=== PATIENT | female | born 1970 | race Caucasian/White ===

== ENCOUNTER → 2018-03-14 18:13 | Outpatient (CLI) | payer BC, OTHER, SELFPAY ==
[2018-03-19 14:08] LABS: HPV Reflexed? NOT INDICATED
== END ==
PROVIDERS: Family Provider Family Medicine; PCP Family Medicine; Visit Provider Obstetrics & Gynecology
DX: Z12.4 Encounter for screening for malignant neoplasm of cervix (principal)
CPT/HCPCS: 88175; G0145

== ENCOUNTER → 2018-05-17 07:35 | Outpatient (CLI) | payer BC, OTHER, SELFPAY ==
--- NOTE | 2018-05-17 07:38 | BI_ITS ---
MAMMOGRAPHY - BILATERAL SCREENING REASON FOR EXAM: Female, 48 years old. Routine annual screening examination. PERTINENT HISTORY: Non-contributory. TECHNIQUE: Digital bilateral breast shanita (3D mammographic acquisition) in the CC and MLO projections. 2-D mediolateral oblique (MLO) and craniocaudad (CC) views of both breasts were obtained. CAD: Full Field Digital Mammography with Computer Added Detection was performed. COMPARISON: Comparison is made with prior study dated March 07, 2017 interpreted 2015. FINDINGS: Breast Composition: The breasts are extremely dense, which lowers the sensitivity of mammography. There are no dominant masses or suspicious calcifications. A tissue clip marker is seen in the upper medial aspect of the right breast with the history of prior right needle biopsy. No other significant abnormalities are identified. There has been no significant change since the prior study. BI/SCREENING MAMM (CAD), BILAT IMPRESSION: Stable bilateral screening mammogram. Yearly follow-up mammogram recommended. (A) ASSESSMENT CATEGORY: BIRADS Category 2: Benign. A letter regarding these results will be sent to the patient by the facility within 30 days. Approximately 10% of breast cancers are not detected by mammography. A normal mammogram should not delay biopsy of a clinically suspicious abnormality. [id number] Electronically Signed: Jules Owens MD at 10:13 EDT Tel [phone], Service support ,
== END ==
PROVIDERS: Family Provider Family Medicine; PCP Family Medicine; Visit Provider Obstetrics & Gynecology
DX: Z12.31 Encounter for screening mammogram for malignant neoplasm of breast (principal)
CPT/HCPCS: 77063; 77067

== ENCOUNTER → 2018-06-06 15:15 | Outpatient (CLI) | payer BC, OTHER, SELFPAY ==
[2018-06-06 17:40] LABS: Chlamydia Trachomatis by PCR Negative (Negative); Neisserai gonorrhoeae by PCR Negative (Negative); Probe Check PASS; Sample Adequacy Control PASS; Specimen Processing Control PASS
== END ==
PROVIDERS: Visit Provider Obstetrics & Gynecology
DX: Z11.3 Encounter for screening for infections with a predominantly sexual mode of transmission (principal)
CPT/HCPCS: 87491; 87591

== ENCOUNTER → 2019-05-30 | Outpatient (CLI) | payer OTHER, SELFPAY ==
--- NOTE | 2019-05-30 07:43 | BI_ITS ---
MAMMOGRAPHY - BILATERAL SCREENING REASON FOR EXAM: Female, 49 years old. Routine annual screening examination. PERTINENT HISTORY: Non-contributory. TECHNIQUE: Digital bilateral breast shi (3D mammographic acquisition) in the CC and MLO projections. 2-D mediolateral oblique (MLO) and craniocaudad (CC) views of both breasts were obtained. CAD: Full Field Digital Mammography with Computer Added Detection was performed. COMPARISON: Comparison is made with prior study dated May 17, 2018 and March 07, 2017. FINDINGS: Breast Composition: The breasts are extremely dense, which lowers the sensitivity of mammography. There are no dominant masses or suspicious calcifications. Interstitial clip markers once again seen within a small partially calcified nodule in the upper medial aspect of the right breast. No other significant abnormalities are identified. There has been no significant change since the prior study. BI/SCREEN MAMM (CAD) W/SHI BILAT IMPRESSION: Stable bilateral screening mammogram. Yearly follow-up mammogram recommended. (A) ASSESSMENT CATEGORY: BIRADS Category 2: Benign. A letter regarding these results will be sent to the patient by the facility within 30 days. Approximately 10% of breast cancers are not detected by mammography. A normal mammogram should not delay biopsy of a clinically suspicious abnormality. [id number] Electronically Signed: Jules Owens, at 10:16 EDT , Service support ,
== END | disposition home or self-care (01) ==
LOC: OPBI 07:41
PROVIDERS: Family Provider Family Medicine; PCP Family Medicine; Referring Provider Obstetrics & Gynecology; Visit Provider Obstetrics & Gynecology
DX: Z12.31 Encounter for screening mammogram for malignant neoplasm of breast (principal)
CPT/HCPCS: 77063; 77067

== ENCOUNTER → 2020-08-27 | Outpatient (CLI) | payer BC, OTHER, SELFPAY ==
--- NOTE | 2020-08-27 17:04 | BI_ITS ---
MAMMOGRAPHY - BILATERAL SCREENING REASON FOR EXAM: Female, 50 years old. Routine annual screening examination. PERTINENT HISTORY: Non-contributory. Prior right breast biopsy. TECHNIQUE: Digital bilateral breast shi (3D mammographic acquisition) in the CC and MLO projections. 2-D mediolateral oblique (MLO) and craniocaudad (CC) views of both breasts were obtained. CAD: Full Field Digital Mammography with Computer Added Detection was performed. COMPARISON: Comparison is made with prior study dated 05/30/2019 and 05/17/2018. FINDINGS: Breast Composition: The breasts are extremely dense, which lowers the sensitivity of mammography. There are no dominant masses or suspicious calcifications. A tissue clip marker is once again seen in the partially calcified small nodule in the deep upper medial aspect of the right breast. No other significant abnormalities are identified. There has been no significant change since the prior study. BI/SCREEN MAMM (CAD) W/SHI BILAT IMPRESSION: Stable bilateral screening mammogram. Yearly follow-up mammogram recommended. (A) ASSESSMENT CATEGORY: BIRADS Category 2: Benign. A letter regarding these results will be sent to the patient by the facility within 30 days. Approximately 10% of breast cancers are not detected by mammography. A normal mammogram should not delay biopsy of a clinically suspicious abnormality. [id number] Electronically Signed: Jules Owens, at 13:55 EDT , Service support ,
== END | disposition home or self-care (01) ==
LOC: OPBI 08-28 08:24
PROVIDERS: PCP Family Medicine; Referring Provider Obstetrics & Gynecology; Visit Provider Obstetrics & Gynecology
DX: Z12.31 Encounter for screening mammogram for malignant neoplasm of breast (principal)
CPT/HCPCS: 77063; 77067

== ENCOUNTER → 2020-09-17 | Outpatient (CLI) | payer BC, OTHER, SELFPAY ==
--- NOTE | 2020-09-16 16:31 | TISS_PTH ---
PATIENT: RJ VIEYRA LOC: [facility] U#:[id number] AGE/SX: 50/F ROOM: RE09/17/[address]: Dr. Herlinda Kebede MD : 1970 BED: DIS: 09/17/2020 SPEC #: [id number] RECD: 09/17/20 12:03 STATUS: NOMAN CHIP #: [id number] TERENCE: 09/16/20 16:[address]: Herlinda Kebede DEPT: SURGICAL PATHOLOGY RECD BY: Orin Hernández ENTERED: 09/17/20 13:47 SP TYPE: Tissue Bx CARTER DR: Dr. Medardo Rodriguez MD Tissues: Thyroid gland, NOS Procedures: Surgery Specimen Level IV HEADER OPERATION: Left thyroid needle core biopsy PRE-OP DIAGNOSIS: Thyroid mass TISSUE SUBMITTED: Thyroid needle core biopsy MICROSCOPIC DIAGNOSIS Thyroid mass, needle core biopsy: Consistent with benign colloid nodule. See comment. BRAVO:kevan 09/21/20 COMMENT The specimen also shows fragments of fibrous tissue with chronic inflammation, dystrophic calcification and skeletal muscle tissue. Correlation with clinical, radiologic findings and appropriate follow up are necessary. Please make reference to previous specimen ([id number]) fine needle aspiration, right thyroid nodule with diagnosis of macrophages, watery colloid and rare benign follicular cells and fine needle aspiration, left thyroid nodule with diagnosis of macrophages, watery colloid and rare benign follicular cells. MICROSCOPIC DESCRIPTION Slides are reviewed. GROSS DESCRIPTION Received is one container labeled with the patient's name and not further designated. The specimen consists of multiple irregular fragments of stewart soft tissue that in aggregate measure 1.5 x 0.2 x 0.1 cm. The specimen is totally submitted in one cassette. / BRAVO:kevan 09/18/20 TC:5 CPT: 06073
== END | disposition home or self-care (01) ==
LOC: LABSPEC 13:22
PROVIDERS: PCP Family Medicine; Referring Provider Surgery; Visit Provider Surgery
DX: E07.9 Disorder of thyroid, unspecified (principal)
CPT/HCPCS: 88305

== ENCOUNTER 2021-01-05 13:54 | Observation (INO) | payer BC, OTHER, SELFPAY ==
[2021-01-05] VITALS (11 sets, daily range): BP systolic 94–116; BP diastolic 45–73; PULSE 67–92; RESP 12–16; TEMP 36.2–37; O2SAT 95–100; BMI 21.1
--- NOTE | 2021-01-05 | IMM_PTH ---
PATIENT: RJ VIEYRA LOC: [facility] U#:[id number] AGE/SX: 50/F ROOM: [facility] [place] RE01/05/[address]: Dr. Herlinda Kebede MD : 1970 BED: 1 DIS: 01/06/2021 SPEC #: [id number] RECD: 01/07/21 11:32 STATUS: NOMAN REQ #: [id number] TERENCE: 01/05/21 00:[address]: Herlinda Kebede DEPT: IMMUNOHISTOCHEMISTRY RECD BY: Danette Leija ENTERED: 01/07/21 11:33 SP TYPE: IMMUNO OTHR DR: Dr. Medardo Rodriguez MD Tissues: Thyroid gland, NOS Procedures: HBME (initial) CD56 (add) CK19 (add) GAL-3 (add) PHYSICIAN & INSTITUTION [place] [id number] SPECIMEN INFORMATION: Tissue Source: Left thyroid nodule and isthmus Clinical Info: Left thyroid nodule Specimen Number: [id number] #5 CPT code: 26524, 87049 x3 METHODOLOGY: Deparaffinized sections of prefer/formalin-fixed tissue or PAP/DQ stained slides are incubated with monoclonal/polyclonal antibodies/oligonucleotide probes. Localization is made via biotin free immunoperoxidase method. Appropriate controls are performed and reacted as expected. Results on target cell population are indicated in the following table: RESULTS: ANTIBODY / CLONE RESULT Block 5 HBME1 (HBME-1) positive CK19 (A53-B/A2.26) positive GAL3 (9C4) negative CD56 (123C3.D5) positive, focal These tests were developed and their performance characteristics determined by [facility]. They may not have been cleared or approved by the U.S. Food and Drug Administration. The FDA has determined that such clearance or approval is not necessary. The above immunohistochemical/dualISH markers are ordered and reviewed by the Pathologist. INTERPRETATION: Left thyroid nodule and isthmus, lobectomy and isthmusectomy: Consistent with follicular neoplasm. See comment. BRAVO:kevan 01/13/2021 Comment: The specimen is sent to [facility] for expert opinion, reviewed by Dr. Kebede and the above diagnosis is rendered. The complete report is viewable in the patient's EMR.
--- NOTE | 2021-01-05 09:05 | HP.PCM_ITS ---
History and Physical Date of Admission: 01/05/21 Yashira Lopez 1970 ? ? REFERRING PHYSICIAN: Min Ramirez MD ? CHIEF COMPLAINT: No chief complaint on file. ? HPI: The patient is a pleasant 50 year old female with known multinodular goiter. She is noted to have a large left thyroid nodule - 6.8 X 5.4 cm (previously 6.6 x 4.9 cm in 2016) She intermittently feels that something is there and points to the left side of her neck. She does feel that it takes a little bite more to swallow food, she feels that more work is involved. She notes no thyroid cancer in the family, denies pancreatic cancer in the family. Her mother had lymphoma. She denies radiation exposure. She denies hoarseness. She denies history of thyroiditis or taking any thyroid hormones. Recent serum TSH is normal. She underwent US guided FNA of the left thyroid nodule - 02/01/2016 DIAGNOSIS CYTOLOGY A. Fine needle aspiration, right thyroid nodule (cell block): Negative for malignant cells. See comment. B. Fine needle aspiration, right thyroid nodule (smears): Macrophages, watery colloid and rare benign follicular cells. C. Fine needle aspiration, left thyroid nodule (smears): Macrophages, watery colloid and rare benign follicular cells. COMMENT Immediate cytologic evaluation to determine adequacy is not applicable. A - The specimen primarily contains macrophages and blood. ? She was also found to have a lesion of the right kidney by US for which follow up radiographs were recommended. ? US 09/01/2020 RESULT: Right Lobe: ?4.3 x 1.1 x 1.1 cm; homogeneous echogenicity, expected vascular flow. Left Lobe: ?7.2 x 3.3 x 3.9 cm; homogeneous echogenicity, expected vascular flow. Isthmus: 0.4 cm The most suspicious thyroid nodule(s) (up to four) as below: NODULE 1: Location: Right upper pole Size: 0.5 x 0.5 x 0.4 cm Characteristics: ?? ? Composition: ?Solid or almost completely solid, 2 points ?? ? Echogenicity: Hypoechoic, 2 points ?? ? Shape: ?Oarzb-xzmc-ybcx, 0 points ?? ? Margin: Smooth, 0 points ?? ? Echogenic foci (add points for all that apply): ? Macrocalcifications, 1 point ?? ? Internal vascularity: ?present ?? ? Interval growth: ?Appears to be new compared to the prior exam TI-RADS Category: TR4 ACR Recommendation: TI-RADS 4 nodule. ?No FNA or follow- up imaging is advised. NODULE 2: Location: Right mid Size: 0.6 x 0.5 x 0.4 cm Characteristics: ?? ? Composition: ?Solid or almost completely solid, 2 points ?? ? Echogenicity: Hypoechoic, 2 points ?? ? Shape: ?Luxqw-qyvu-rvgt, 0 points ?? ? Margin: Smooth, 0 points ?? ? Echogenic foci (add points for all that apply): ?None, 0 points ?? ? Internal vascularity: ?present ?? ? Interval growth: ?Is smaller when compared to the prior exam TI-RADS Category: TR4 ACR Recommendation: TI-RADS 4 nodule. ?No FNA or follow- up imaging is advised. NODULE 3: Location: Right lower pole Size: 0.5 x 0.5 x 0.4 cm Characteristics: ?? ? Composition: ?Solid or almost completely solid, 2 points ?? ? Echogenicity: Hypoechoic, 2 points ?? ? Shape: ?Tvyhj-sfpt-vrkd, 0 points ?? ? Margin: Smooth, 0 points ?? ? Echogenic foci (add points for all that apply): ?None, 0 points ?? ? Internal vascularity: ?present ?? ? Interval growth: ?Appears to be new when compared to the prior exam. TI-RADS Category: TR4 ACR Recommendation: TI-RADS 4 nodule. ?No FNA or follow- up imaging is advised. NODULE 4: Location: Left mid Size: 6.8 x 3.1 x 5.4 cm Characteristics: ?? ? Composition: ?Mixed cystic and solid, 1 point ?? ? Echogenicity: Isoechoic, 1 point ?? ? Shape: ?Jtutp-hbbu-xoqn, 0 points ?? ? Margin: Smooth, 0 points ?? ? Echogenic foci (add points for all that apply): ? Macrocalcifications, 1 point ?? ? Internal vascularity: ?present ?? ? Interval growth: ?Significant interval growth (20% increase in at least two nodule dimensions and a minimal increase of 2 mm, or a 50% or greater increase in volume). TI-RADS Category: TR3 ACR Recommendation: TI-RADS 3 nodule. FNA is recommended for nodules measuring greater than 2.5cm. US guided needle core biopsy 09/16/2020 benign colloid nodule. Because of her increasing globus sensation and swallowing discomfort, patient wishes to undergo left thyroid lobectomy ? ? PAST MEDICAL HISTORY ? Goiter 12/29/2015 ? Has had for over 18 yrs. W/u in past was neg. ? PAST SURGICAL HISTORY ? FNA WITH IMAGING Bilateral 02/01/16 ? U/S FNA bilateral thyroid ? LAP CHOLECYSTECT/CHOLANGIOGRAPHY ? 02-23-16 ? PAST SURGICAL HISTORY OF ? ? ? cyst from right wrist ? PAST SURGICAL HISTORY OF ? ? ? wisdom teeth extraction ? ? Current Outpatient Medications ? HYDROcodone-acetaminophen (NORCO) 5-325 mg per tablet Take 1 tablet by mouth every 4 hours as needed. ? levonorgestrel (MIRENA) 20 mcg/24 hr (5 years) IUD 1 Each by INTRAUTERINE route one time only. ? ? ALLERGIES: Penicillin ? PERSONAL HISTORY: Social History ? Tobacco Use ? Smoking status: Never Smoker ? Smokeless tobacco: Never Used Substance Use Topics ? Alcohol use: No ? Drug use: No ? FAMILY HISTORY Problem Relation Age of Onset ? Breast Cancer Paternal Aunt ? ? Cancer Paternal Aunt ? ? lung ? Diabetes Maternal Grandmother ? ? ? REVIEW OF SYSTEMS: General - denies fevers, denies anorexia, denies weight changes Cardiovascular - denies chest pain, denies history of NC Pulmonary - denies TOB use, denies shortness of breath, denies coughing up blood Gastrointestinal - denies abdominal pain, denies hematemesis, has intermittent constipation and takes occasional stool softeners Neurological - denies seizures, denies chronic numbness/weakness of extremities Genitourinary - denies burning with urination, denies blood in urine Hematological - denies spontaneous/prolonged bleeding Skin - denies nonhealing skin wounds Musculoskeletal - no new muscle/bone pain Endocrine - denies diabetes, see above, denies hair/skin changes, denies temperature intolerances Psychological ? denies hallucinations ? PHYSICAL EXAMINATION: General: The patient is 50 year old female, well nourished, well hydrated in no acute distress. The patient is oriented to time, place, and person. VITALS: Pulse 108, temperature 36.6 ?C (97.9 ?F), temperature source Temporal Artery, height 157.5 cm (5' 2), weight 52.9 kg (116 lb 9.6 oz), SpO2 98 %. Body mass index is 21.33 kg/m?. Head ? Normocephalic. EOM intact with sclera clear and no icterus noted. Mouth with mucus membranes moist. Neck - supple with no jugular venous distention noted. Trachea is midline. No carotid bruits noted. Palpable thyroid enlargement with left greater than right. No discrete masses noted. Lungs ? clear to auscultation. Normal breath sounds. No rales/rhonchi/wheezing noted. No labored breathing noted, such as retractions. No cough heard. Heart ? normal S1 and S2 auscultated. No rubs/clicks/murmurs noted. Regular rate. Abdomen ? soft and benign. Normal bowel sounds. No abdominal bruits noted. Difficult to determine if any masses or organomegaly due to body habitus. Extremities ? no calf tenderness noted. No pitting edema noted. Skin ? normal skin integrity. Neurological ? gait normal, no focal deficits noted. Psych ? calm and appropriate Lymph ? no cervical adenopathy detected, no supraclavicular adenopathy detected, no axillary adenopathy detected RADIOLOGIC STUDIES: As Noted ?? IMPRESSION: large left thyroid nodule - symptomatic ? PLAN: I have discussed the above with the patient. I have offered left thyroidectomy, however, I have told them that pathological analysis will be done and if cancer is found, then will require total thyroidectomy. If total thyroidectomy is done, then she will have to be on lifelong thyroid medications. I have described the surgery to the patient in la yman?s terms. I have counseled the patient as to the risks of surgery, including but not limited to: infection, bleeding, seroma, scar tissue, cosmetic deformity, injury to any blood vessels/nerves, injury to the recurrent laryngeal nerves and their sequelae, injury to the parathyroid glands and their sequelae, bleeding requiring further surgery, etc. ? the patient understands The patient was offered a surgery/procedure. The provider and patient have discussed in detail the risk of exposure to and/or potential harm posed by the COVID-19 virus with having a surgery/procedure at this time versus the risk of delaying the surgery/procedure. It is not possible to know either the risk of delaying the surgery or procedure or chance of getting an infection with perfect accuracy, but a joint decision was made between the patient and the provider to proceed at this time with the scheduled surgery/procedure. The patient wishes to proceed. I have answered all her questions to their satisfaction and she has no further questions. ? Herlinda Kebede MD
[2021-01-05] MEDS: Lactated Ringers 1,000 ML 75 ML IV ×2 (10:32→14:53)
[2021-01-05 10:34] LABS: Internal QC Validated? YES +Cl - CLEAR BKGD; Pregnancy, Urine Negative Negative
--- NOTE | 2021-01-05 11:30 | THYROID_PTH ---
PATIENT: RJ VIEYRA LOC: [facility] U#:[id number] AGE/SX: 50/F [place] [facility] [place]: Dr. Herlinda Kebede MD : 1970 BED: 1 DIS: 01/06/2021 SPEC #: [id number] RECD: 01/05/21 15:09 STATUS: NOMAN RESavanna #: [id number] TERENCE: 01/05/21 11:[address]: Herlinda Kebede DEPT: SURGICAL PATHOLOGY RECD BY: Orin Hernández ENTERED: 01/06/21 07:44 SP TYPE: THYROID OTHR DR: Dr. Medardo Rodriguez MD Tissues: Thyroid gland, NOS Procedures: Surgery Specimen Level V HEADER OPERATION: Left thyroid lobectomy and isthmusectomy PRE-OP DIAGNOSIS: Symptomatic left thyroid nodule TISSUE SUBMITTED: Left thyroid nodule and isthmus MICROSCOPIC DIAGNOSIS Left thyroid nodule and isthmus, thyroid lobectomy and isthmusectomy: Consistent with follicular neoplasm. See comment. SJ:rg 01/13/2021 COMMENT The specimen is sent to [facility] for expert opinion, reviewed by Dr. Kebede and the above diagnosis is rendered. The complete report is viewable in the patient's EMR. Immunohistochemistry ([id number]) and additional immunohistochemical stains performed at [facility] supports the above diagnosis. Dr. Kebede also comment that no capsular invasion is seen and adenoma is favored, but evaluation was limited by fragmental specimen. No nuclear features to suggest papillary thyroid carcinoma are seen. Please make reference to previous specimens ([id number]) thyroid mass, needle core biopsy with diagnosis of consistent with benign colloid nodule and ([id number]) fine needle aspiration, thyroid nodule with diagnosis of macrophages, watery colloid and rare benign follicular cells and left fine needle aspiration, left thyroid nodule with diagnosis of macrophages, watery colloid and rare benign follicular cells. MICROSCOPIC DESCRIPTION Slides are reviewed. GROSS DESCRIPTION Received in fixative is one container labeled with the patient's name and designated left thyroid nodule and isthmus. The specimen is received in multiple pieces. The largest piece appears to consist of previously opened nodule, left lobe and measures 5 x 2 x 0.7 cm. Also present in the container are multiple pieces of soft tissue measuring in aggregate 2.5 x 2 x 0.5 cm. No parathyroid tissue is identified. The external surface of the largest piece is inked black. [place] are noted. The largest piece of the thyroid nodule is serially sectioned. The second largest piece is bisected. The entire specimen is submitted in six cassettes as follows: 1-4 - largest piece left thyroid nodule, 5 - second largest piece, bisected, 6 - smaller pieces of tissue. / BRAVO:kevan 01/06/21 TC:5 CPT: 34406
--- NOTE | 2021-01-05 13:51 | PCM.OPRPT ---
Report of Operation Date of Procedure: 01/05/21 Pre-Operative Diagnosis: left thyroid goiter/nodule Post-Operative Diagnosis: same Surgery/Procedure Performed:: left thyroid lobectomy and isthmusectomy Description of Surgical Findings:: large left thyroid goiter extending superiorly against the thyroid cartilage maintenance manager: Hanh Thompson Type of Anesthesia:: General Anesthesiologist: Titus Fernandez Specimen's removed: left thyroid lobe and isthmus Drains: TLS drain in left thyroid bed Estimated Blood Loss (mL): 20 ml Fluids Replaced: 1700 ml RL Description of Procedure: After informed consent was obtained, the patient was brought to the Operating Room. Appropriate time out protocol was done. She was then placed in the supine position. She was then placed under GETA. The patient was then positioned with arms tucked and appropriate padding, with neck extension, and in the slightly reverse Trendelenburg position. The neck and upper chest were then prepped with a sterile surgical skin preparation and appropriate sterile surgical drapes were placed. The landmarks were identified and a low cervical collar incision was made with a 15 blade scalpel and carried down to the subcutaneous tissues using Bovie in the electrocautery mode. The platysma was divided along the incision and then flaps were created superiorly to the cricoid cartilage level and inferiorly to the sternal notch. The fascia overlying the strap muscles was then divided along the midline. The left thyroid gland was thus approached. The plane between the thyroid gland anterior and the strap muscles posteriorly was then bluntly dissected. Dissection continued layer by layer to identify the inferior pole vessels of the left thyroid gland. The inferior pole vessels were identified. The vessels were ligated with ligaclips and then transected with the Harmonic scalpel. Of note, the left thyroid gland was very much enlarged and was nodular. The middle thyroid vein was identified and also ligated with the Harmonic scalpel and then transected. The inferior pole was then bluntly dissected free and the surrounding investiture. It was noted to be slightly substernal, but was able to be brought out of its position with retraction and thus retracted medially. Attention was then directed to the superior pole of the thyroid gland. The superior pole vessels were then ligated adjacent to the thyroid lobe in order to prevent damage to the superior laryngeal nerve. The parathyroid gland was identified and care was taken to preserve the blood supply to the parathyroid gland. The thyroid gland was appearing ischemic and shrunk in size and the gland could be further retracted medially, the gland was noted to be partially cystic. The recurrent laryngeal nerve was identified. The vessels were ligated and this was done to avoid injury to the laryngeal nerve. Once the thyroid tissue was free from the attachments to the trachea with the recurrent laryngeal nerve protected and dissection continued to dissect the thyroid gland from the trachea. The gland was large that it abutted against the thyroid cartilage pushing it outwards. There was a small tongue of thyroid tissue extended superior into the pharyngeal musculature interdigitating with them and therefore this tissue was left in place. Surgicel was used for hemostasis. A small 10 Amharic drain was then placed in the thyroid bed and brought out via a stab incision. The fascia of the strap muscles was then reapproximated along the midline using Vicryl suture. The platysma muscle was then reapproximated in a transverse fashion using interrupted 2-0 Vicryl suture. The skin incision was then reapproximated using 4-0 Monocryl in a running subcuticular fashion. The skin closure was reinforced using Dermibond. Prior to extubation, a glide scope examination was done. The vocal cords were noted to adduct bilaterally. The patient was then extubated. She was brought to the Recovery Room in stable condition. She was able to phonate the letter E without difficulty. - Complications none noted - Admit VTE Documentation VTE Present on Admission: Yes VTE Mechan Device Prophylaxis: SCD's
[2021-01-05] MEDS: Lidocaine 1% /Epi 1:100 (20ml) 20 ML Vial (14:03)
[2021-01-05] MEDS: 0.9% Saline Lock 10 ML Syringe IV (18:55)
[2021-01-05] MEDS: Ondansetron 4 MG/2 ML Vial IV (18:55)
[2021-01-06 00:36] VITALS: BP 98/54; PULSE 60; RESP 16; TEMP 36.9; O2SAT 97
[2021-01-06] MEDS: Lactated Ringers 1,000 ML 75 ML IV (00:43)
[2021-01-06 04:35] VITALS: BP 94/56; PULSE 67; RESP 17; TEMP 37.2; O2SAT 98
[2021-01-06] MEDS: Morphine 2 MG/ML Syringe IV (04:43)
[2021-01-06] MEDS: 0.9% Saline Lock 10 ML Syringe IV (04:48)
[2021-01-06 08:29] VITALS: BP 99/52; PULSE 76; RESP 16; TEMP 37.1; O2SAT 98
--- NOTE | 2021-01-06 08:41 | PCM.DC.GS ---
Discharge Diet: Light diet - advance as tolerated - soft foods then advance over the next few days to a regular diet, drink plenty of fluids Discharge Activity: Return to Normal Activity, May not drive while taking narcotic pain medications. Lifting Restrictions: no lifting greater than 20 pounds for two weeks Call your doctor if your incision/area has: Continuous Slow Oozing, Foul Smelling Discharge Call your doctor if you observe: Fever of 101 or Higher Additional Instructions: Recommended pain control regimen - May take 600 mg ibuprofen (Motrin) and then in 3-4 hours, may take 650 mg acetaminophen (Tylenol), then in 3-4 hours may take 600 mg ibuprofen, then in 3-4 hours may take 650 mg acetaminophen and so on for 2-3 days May take narcotic pain medication for pain that is not controlled by above and at night for comfort through the night Leave dressings in place May get dressings wet in shower - do not scrub in the area and pat dry Do not soak - no tub baths/swimming You may have bleeding at the dressing site. If small amounts and not seeping through the dressing, do not worry - leave dressing in place. If starting to seep through the dressing, you may remove the dressing and take a clean wash clothe and apply direct pressure to the area for at least an hour and then apply a new clean dressing at the site. If it still has not stopped bleeding, please call the office during the day or the [facility] barratte operator at after hours and ask for Dr. Kebede You have an appointment scheduled for January 13, 2021 at 13:00. Allergies/Adverse Reactions: Allergies Penicillins [PCN] Allergy (Verified 01/05/21 10:13) Rash acetaminophen [From [place]] Adverse Reaction (Verified 01/05/21 10:13) Nausea HEADACHE hydrocodone [From [place]] Adverse Reaction (Verified 01/05/21 10:13) Nausea HEADACHE Medications to take at Discharge traMADol [Ultram] 50 mg PO Q8H PRN PRN 2 Days #5 tab 01/06/21 The following prescriptions were given: traMADol [Ultram] 50 mg PO Q8H PRN PRN 2 Days #5 tab PRN Reason: Pain Score 6-10 Transmission Status: Received by [id number] Primary Care Physician: Michael,Medardo, MD [Primary Care Provider] - Test Results: Test results from this visit will be discussed in further detail at your follow-up appointment, if applicable.
[2021-01-06 13:44] VITALS: BP 102/50; PULSE 70; RESP 18; TEMP 36.8; O2SAT 98
== END 2021-01-06 13:47 | disposition home or self-care (01) ==
LOC: SDC 15:32 → MS3 15:38
PROVIDERS: Anesthesiology; Admitting Provider Surgery; PCP Family Medicine; Referring Provider Surgery; Visit Provider Surgery
PROC: (CPT 60220; principal; 2021-01-05 11:15)
DX: E04.2 Nontoxic multinodular goiter (principal); Z20.828 Contact with and (suspected) exposure to other viral communicable diseases
CPT/HCPCS: 60220; 81025; 87426; 88307; 88341; 88342; 96361; 96374; 96375; 99218; C9803; J7120; A4216; G0378; G0379; J2405

== ENCOUNTER → 2021-11-01 07:44 | Outpatient (CLI) | payer BC, OTHER, SELFPAY ==
--- NOTE | 2021-11-01 07:47 | BI_ITS ---
MAMMOGRAPHY - BILATERAL SCREENING REASON FOR EXAM: Female, 51 years old. Routine annual screening examination. PERTINENT HISTORY: Non-contributory. Prior right breast biopsy. TECHNIQUE: Digital bilateral breast shi (3D mammographic acquisition) in the CC and MLO projections. 2-D mediolateral oblique (MLO) and craniocaudad (CC) views of both breasts were obtained. CAD: Full Field Digital Mammography with Computer Added Detection was performed. COMPARISON: Comparison is made with prior examination dated 08/27/2020 and 05/30/2019. FINDINGS: Breast Composition: The breasts are extremely dense, which lowers the sensitivity of mammography. There are no dominant masses or suspicious calcifications. A tissue clip marker is once again seen in the deep upper medial aspect of the right breast. No other significant abnormalities are identified. There has been no significant change since the prior study. BI/SCRN MAMM (CAD)W/SHI BILAT IMPRESSION: Stable bilateral screening mammogram. Yearly follow-up mammogram recommended. (A) ASSESSMENT CATEGORY: BIRADS Category 2: Benign. A letter regarding these results will be sent to the patient by the facility within 30 days. Approximately 10% of breast cancers are not detected by mammography. A normal mammogram should not delay biopsy of a clinically suspicious abnormality. [id number] Electronically Signed: Jules Owens MD at 8:29 EST , Service support ,
== END ==
PROVIDERS: PCP Family Medicine; Referring Provider Obstetrics & Gynecology; Visit Provider Obstetrics & Gynecology
DX: Z12.31 Encounter for screening mammogram for malignant neoplasm of breast (principal)
CPT/HCPCS: 77063; 77067

== ENCOUNTER → 2022-12-13 | Outpatient (CLI) | payer OTHER, SELFPAY ==
[2022-12-17 11:06] LABS: HPV APTIMA, High Risk Negative (Negative)
== END | disposition home or self-care (01) ==
LOC: LABSPEC 10:48
PROVIDERS: PCP Family Medicine; Visit Provider Obstetrics & Gynecology
DX: Z12.4 Encounter for screening for malignant neoplasm of cervix (principal)
CPT/HCPCS: 87624; 88175; G0145

== ENCOUNTER → 2022-12-23 | Outpatient (CLI) | payer OTHER, SELFPAY ==
--- NOTE | 2022-12-23 13:01 | BI_ITS ---
MAMMOGRAPHY - BILATERAL SCREENING REASON FOR EXAM: Female, 52 years old. Routine annual screening examination. PERTINENT HISTORY: Non-contributory. TECHNIQUE: Digital bilateral breast shi (3D mammographic acquisition) in the CC and MLO projections. 2-D mediolateral oblique (MLO) and craniocaudad (CC) views of both breasts were obtained. CAD: Full Field Digital Mammography with Computer Added Detection was performed. COMPARISON: Comparison is made with prior study dated 11/01/2021 and 08/27/2020. FINDINGS: Breast Composition: The breasts are extremely dense, which lowers the sensitivity of mammography. There are no dominant masses or suspicious calcifications. A a tissue clip marker is once again seen in the slightly upper anterior medial aspect of the right breast. No other significant abnormalities are identified. There has been no significant change since the prior study. BI/SCRN MAMM (CAD)W/SHI BILAT IMPRESSION: Stable bilateral screening mammogram. Yearly follow-up mammogram recommended. (A) ASSESSMENT CATEGORY: BIRADS Category 2: Benign. A letter regarding these results will be sent to the patient by the facility within 30 days. Approximately 10% of breast cancers are not detected by mammography. A normal mammogram should not delay biopsy of a clinically suspicious abnormality. [id number] Electronically Signed: Jules Owens MD at 13:43 EST ,
== END | disposition home or self-care (01) ==
PROVIDERS: PCP Family Medicine; Visit Provider Obstetrics & Gynecology
DX: Z12.31 Encounter for screening mammogram for malignant neoplasm of breast (principal)
CPT/HCPCS: 77063; 77067

== ENCOUNTER 2023-03-20 10:18 | Day surgery (SDC) | payer OTHER, SELFPAY ==
[2023-03-20] VITALS (7 sets, daily range): BP systolic 85–109; BP diastolic 56–71; PULSE 70–90; RESP 16–18; TEMP 36.4–37.2; O2SAT 98–100; BMI 20.1
[2023-03-20 10:52] LABS: Internal QC Validated? YES +Cl - CLEAR BKGD; Pregnancy, Urine Negative Negative
[2023-03-20] MEDS: Lactated Ringers 1,000 ML 15 ML IV (10:53)
--- NOTE | 2023-03-20 10:59 | HP.PCM_ITS ---
[facility] - General General Date of Admission: 03/20/23 Date of Service: 03/20/23 Chief Complaint: Screening colonoscopy HPI Narrative RJ VIEYRA, is a 52 F who presents today for screening colonoscopy. She has no past medical history. She has no family history of colon cancer. She is not having abdominal pain. She not have any nausea, vomiting or diarrhea. She has no headache or dizziness. Overall she is in very good health. [facility] Medical History (Updated 03/15/23 @ 09:53 by Lennie Milner) Non-smoker Wears contact lenses Home Medications NK 01/10/23 [History Last Taken Unknown] Allergy/AdvReac Type Severity Reaction Status Date / Time Penicillins [PCN] Allergy Rash Verified 03/20/23 10:45 hydrocodone [From [place]] AdvReac Nausea Verified 03/20/23 10:45 Surgical History (Updated 03/15/23 @ 09:53 by Lennie Milner) H/O partial thyroidectomy (~12/2020) Social History Smoking Status: Never smoker ROS Review of Systems ROS Unobtainable: other Constitutional Constitutional: Denies fatigue, fever(s), poor appetite, weight gain or weight loss ENT HEENT: Denies mouth lesions Cardiovascular Cardiovascular: Denies abdominal bloating, abdominal edema or abdominal pain Respiratory/Chest Respiratory/Chest: Denies change in mental status, change in phlegm color, chest congestion or chest tightness Gastrointestinal Gastrointestinal: Denies belching, bloating, change in bowel habits, change in stool character, chewing difficulty, coffee ground emesis, constipation, cramping, diarrhea, dyspepsia, dysphagia, early satiety, excessive flatus, fecal incontinence, heartburn, hematemesis, hematochezia, hemorrhoids, loose stools, melena, nausea, odynophagia, rectal bleeding, tenesmus, vomiting or weight changes Genitourinary Genitourinary: Denies abdominal discomfort, burning urination or itching Musculoskeletal Musculoskeletal: Reports as per HPI; Denies muscle weakness or myalgias Integumentary Integumentary: Denies jaundice Neurologic Neurologic: Denies lack of coordination or weakness Psychiatric Psychiatric: Denies confusion, depression, memory loss, mood swings, paranoia or suicidal ideation Endocrine Endocrinology: Denies systems reviewed and no addt'l complaints, except as documented Hematologic/Lymphatic Hematologic/Lymphatic: Denies anemia, easy bleeding, easy bruising or lymphadenopathy Allergic/Immunologic Allergic/Immunologic: Denies systems reviewed and no addt'l complaints, except as documented Vital Signs Vital Signs Vital Signs: 03/20/23 10:45 Temperature 98.9 F Temperature Source Temporal Pulse Rate 90 Respiratory Rate 18 Blood Pressure 109/71 Blood Pressure Mean 83 Blood Pressure Source Monitor Blood Pressure Position Semi-Fowlers Blood Pressure Location Right Arm Pulse Ox 100 Oxygen Delivery Method Room Air Weight Weight: 110 lb 3.698 oz Body Mass Index (BMI) 20.1 Physical Exam Const alert General Appearance: cooperative Orientation / Consciousness: oriented to person HEENT hearing grossly normal bilaterally Head and Scalp: normal to inspection Face and Sinus: face symmetric Nose: external nose normal Mouth: oral and palatal mucosa normal Eyes conjunctivae normal General Eye: normal appearance of both eyes Neck full ROM General: normal visual inspection Lymph Lymphatic: no lymphadenopathy noted Chest inspection of chest normal and palpation of chest normal Chest: symmetrical chest wall rise Resp normal respiratory effort Effort and Inspection: able to speak in complete sentences Cardio regular rate GI non-distended Percussion: normal to percussion Rectal Exam: deferred Neuro Speech: speech normal Gait (Neuro): normal gait Results Lab / Micro Data Labs: Laboratory Results - last 24 hr 03/20/23 10:38: Urine Test Negative Assessment & Plan Assessment/Plan (1) Encounter for screening for malignant neoplasm of colon: PLAN: She was explained alternatives, risk, benefits including outstanding bleeding, infection, sepsis, perforation, need for mergers or . She will have an ASA of 1.
--- NOTE | 2023-03-20 12:05 | OP.COLON_ITS ---
Patient Name: Yashira Lopez Procedure Date: 03/20/2023 11:36 AM Date of : 1970 Age: 52 Procedure: Colonoscopy Indications: Screening for colorectal malignant neoplasm Providers: Archie Rich DO Referring MD: Archie Rich DO Medicines: Monitored Anesthesia Care Patient Profile: This is a 52 year old female. Refer to note in patient chart for documentation of history and physical. Last Colonoscopy: Last Colonoscopy: none. The patient's first colonoscopy is today. Complications: No immediate complications. Procedure: Pre-Anesthesia Assessment: - Prior to the procedure, a History and Physical was performed, and patient medications and allergies were reviewed. The patient is competent. The risks and benefits of the procedure and the sedation options and risks were discussed with the patient. All questions were answered and informed consent was obtained. Patient identification and proposed procedure were verified by the physician in the pre-procedure area. Mental Status Examination: alert and oriented. Airway Examination: normal oropharyngeal airway and neck mobility. Respiratory Examination: clear to auscultation. CV Examination: normal. Prophylactic Antibiotics: The patient does not require prophylactic antibiotics. Prior Anticoagulants: The patient has taken no previous anticoagulant or antiplatelet agents. After reviewing the risks and benefits, the patient was deemed in satisfactory condition to undergo the procedure. The anesthesia plan was to use monitored anesthesia care (MAC). Immediately prior to administration of medications, the patient was re-assessed for adequacy to receive sedatives. The heart rate, respiratory rate, oxygen saturations, blood pressure, adequacy of pulmonary ventilation, and response to care were monitored throughout the procedure. The physical status of the patient was re-assessed after the procedure. After I obtained informed consent, the scope was passed under direct vision. Throughout the procedure, the patient's blood pressure, pulse, and oxygen saturations were monitored continuously. The colonoscope was introduced through the anus and advanced to the cecum, identified by appendiceal orifice and ileocecal valve. The colonoscopy was performed without difficulty. The patient tolerated the procedure well. The quality of the bowel preparation was good. Scope In: 11:46:40 AM Scope Withdrawal Time 0 hours 7 minutes 25 seconds Scope Out: 11:58:23 AM Total Procedure Duration Time 0 hours 11 minutes 43 seconds Findings: The perianal and digital rectal examinations were normal. The entire examined colon appeared normal on direct and retroflexion views. Impression: - The entire examined colon is normal on direct and retroflexion views. - No specimens collected. Recommendation: - Discharge patient to home. - Resume previous diet. - Continue present medications. - Repeat colonoscopy in 10 years for screening purposes. Procedure Code(s): --- Professional --- G0121, Colorectal cancer screening; colonoscopy on individual not meeting criteria for high risk CPT copyright 2017 [employer]. All rights reserved. The codes documented in this report are preliminary and upon unbundler review may be revised to meet current compliance requirements. Archie Rich DO 03/20/2023 12:04:43 PM This report has been signed electronically. Number of Addenda: 0 Note Initiated On: 03/20/2023 11:36 AM
--- NOTE | 2023-03-20 12:06 | OP.CCLET_ITS ---
03/20/2023 [address] [place] [address] Re : Colonoscopy procedure for Yashira Lopez Dear Dr. Ramirez This procedure was performed on Monday, March 20, 2023. My impressions and recommendations are as follows: Impressions : - The entire examined colon is normal on direct and retroflexion views. - No specimens collected. Recommendations : - Discharge patient to home. - Resume previous diet. - Continue present medications. - Repeat colonoscopy in 10 years for screening purposes. My findings are described in the full procedure note, which is enclosed. If I can be of further assistance, please feel free to contact me at . Sincerely, Archie Rich, 03/20/2023 12:04:43 PM This report has been signed electronically.
== END 2023-03-20 12:57 | disposition home or self-care (01) ==
LOC: EN 10:18 → AC 10:19
PROVIDERS: Anesthesiology; PCP Family Medicine; Referring Provider Family Medicine; Visit Provider Internal Medicine Gastroenterology
PROC: 0DJD8ZZ Inspection of Lower Intestinal Tract, Via Natural or Artificial Opening Endoscopic (ICD-10-PCS; CPT 45378; principal; 2023-03-20 11:25)
DX: Z12.11 Encounter for screening for malignant neoplasm of colon (principal); Z90.49 Acquired absence of other specified parts of digestive tract
CPT/HCPCS: 45378; 81025; J7120; J2405